=== PATIENT | female | born 1980 | race Caucasian/White ===

== ENCOUNTER 2022-07-16 09:04 | Emergency (ER) | payer MEDICAID ==
[2022-07-16] MEDS ORDERED: LORazepam 1 MG Tab PO ONE (10:46)
== END 2022-07-16 14:12 | disposition home or self-care (01) ==
LOC: JD.ED 09:04
DX: F41.9 Anxiety disorder, unspecified (principal); R05.9 Cough, unspecified; Z79.899 Other long term (current) drug therapy; Z87.891 Personal history of nicotine dependence
CPT/HCPCS: 36415; 71046; 80053; 80143; 80179; 80306; 80307; 81025; 84443; 85007; 85027; 93005; 99284; A9270

== ENCOUNTER 2024-06-20 12:39 | Emergency (ER) | payer SELFPAY ==
[2024-06-20] MEDS: Sodium Chloride 0.9% 10 ML Syringe FLUSH ONE (13:20)
[2024-06-20] MEDS: Ondansetron 4 MG/2 ML SDV IVPUSH ONE (13:20)
[2024-06-20] MEDS: HYDROmorphone 0.5 MG/0.5 ML Syringe IVPUSH ONE ×2 (13:22→14:50)
[2024-06-20] MEDS: Iopamidol 612 MG/ML 100 ML Bottle IVPUSH ONE (13:29)
[2024-06-20] MEDS: Sodium Chloride 0.9% 10 ML Syringe FLUSH PRN (13:29)
[2024-06-20 13:36] LABS: BASOPHILS ABSOLUTE AUTO 0.1 K/mm3 (0.0-0.2); BASOPHILS PERCENT AUTO 0.5 % (0.0-1.0); EOSINOPHILS PERCENT AUTO 0.1 % (0.0-6.0); HEMATOCRIT 42.1 % (37.0-47.0); HEMOGLOBIN 14.8 gm/dl (12.0-16.0); IMMATURE GRAN ABSOLUTE AUTO 0.05 K/mm3 (0.00-0.05); IMMATURE GRAN PERCENT AUTO 0.5 % (0.0-0.4); LYMPHOCYTES ABSOLUTE AUTO 0.6 K/mm3 (1.0-4.8); LYMPHOCYTES PERCENT AUTO 5.3 % (24.0-44.0); MEAN CORPUSCULAR HGB CONC 35.2 g/dl (32.0-36.0); MEAN CORPUSCULAR VOLUME 113.8 fl (83.0-99.0); MEAN PLATELET VOLUME 9.8 fl (9.4-12.3); MONOCYTES ABSOLUTE AUTO 0.7 K/mm3 (0.0-0.8); MONOCYTES PERCENT AUTO 6.6 % (0.0-8.0); NEUTROPHILS ABSOLUTE AUTO 9.6 K/mm3 (1.8-7.7); PLATELET COUNT,PLT 277 K/mm3 (150-400); WHITE BLOOD CELL COUNT,WBC 11.03 K/mm3 (3.9-11.3)
[2024-06-20] MEDS: Sodium Chloride 0.9% 1,000 ML IV STA (13:39)
[2024-06-20 13:56] LABS: A/G RATIO 1.1 (1-2); ALBUMIN 3.8 g/dl (3.4-5.0); BILIRUBIN TOTAL 0.9 mg/dL (0.2-1.0); CALCIUM 9.4 mg/dL (8.5-10.1); CREATININE 0.5 mg/dL (0.55-1.02); EST CRCL DRUG DOSING (CG) 135.05 mL/min; PROTEIN TOTAL,TP 7.4 g/dl (6.4-8.2)
[2024-06-20] MEDS: Lidocaine 2% 11 ML Jelly Filled Syringe MUCMEM ONE (14:52)
== END 2024-06-20 16:15 | disposition home or self-care (01) ==
LOC: JD.ED 12:39
DX: K59.09 Other constipation (principal); I10 Essential (primary) hypertension; Z88.5 Allergy status to narcotic agent
CPT/HCPCS: 36415; 74177; 80053; 83690; 85025; 96361; 96374; 96375; 96376; 99284; A9270; J1171; J2405; J7030; Q9967

== ENCOUNTER 2024-06-21 02:19 | Emergency (ER) | payer SELFPAY ==
[2024-06-21] MEDS ORDERED: Sodium Chloride 0.9% 10 ML Syringe FLUSH PRN (02:41)
[2024-06-21 03:16] LABS: BASOPHILS PERCENT AUTO 0.5 % (0.0-1.0); EOSINOPHILS ABSOLUTE AUTO 0.1 K/mm3 (0.0-0.4); EOSINOPHILS PERCENT AUTO 1.5 % (0.0-6.0); HEMATOCRIT 35.6 % (37.0-47.0); HEMOGLOBIN 12.6 gm/dl (12.0-16.0); IMMATURE GRAN ABSOLUTE AUTO 0.04 K/mm3 (0.00-0.05); IMMATURE GRAN PERCENT AUTO 0.5 % (0.0-0.4); LYMPHOCYTES ABSOLUTE AUTO 1.3 K/mm3 (1.0-4.8); LYMPHOCYTES PERCENT AUTO 15.1 % (24.0-44.0); MEAN CORPUSCULAR HEMOGLOBIN 40.1 pg (28.0-32.0); MEAN CORPUSCULAR HGB CONC 35.4 g/dl (32.0-36.0); MEAN CORPUSCULAR VOLUME 113.4 fl (83.0-99.0); MEAN PLATELET VOLUME 9.7 fl (9.4-12.3); MONOCYTES PERCENT AUTO 11.8 % (0.0-8.0); NEUTROPHILS ABSOLUTE AUTO 6.2 K/mm3 (1.8-7.7); NEUTROPHILS PERCENT AUTO 70.6 % (41.0-71.0); PLATELET COUNT,PLT 228 K/mm3 (150-400); RED BLOOD CELL COUNT 3.14 M/mm3 (4.10-5.30)
[2024-06-21 03:22] LABS: APPEARANCE,URINE CLOUDY (Clear); BILIRUBIN,URINE NEGATIVE (Negative); COLOR,URINE YELLOW (Yellow); GLUCOSE,URINE NEGATIVE (Negative); KETONES,URINE NEGATIVE (Negative); LEUKOCYTE ESTERASE,URINE 1+ (Negative); NITRITE,URINE NEGATIVE (Negative); OCCULT BLOOD,URINE TRACE-INTACT (Negative); PH,URINE 8.5 (5.0-8.0); PROTEIN,URINE TRACE (Negative); UROBILINOGEN,URINE 0.2 (0.2-1.0)
[2024-06-21 03:33] LABS: A/G RATIO 1.1 (1-2); ALBUMIN 3.2 g/dl (3.4-5.0); ANION GAP 11.5 (5-15); BILIRUBIN TOTAL 1.1 mg/dL (0.2-1.0); CREATININE 0.6 mg/dL (0.55-1.02); EST CRCL DRUG DOSING (CG) 121.96 mL/min; POTASSIUM,K 3.5 mEq/L (3.5-5.1)
[2024-06-21 03:35] LABS: RBC,URINE 0-5 /hpf (0-5)
[2024-06-21 03:36] LABS: AMORPHOUS SEDIMENT,URINE MANY /hpf (NOT SEEN); BACTERIA,URINE MANY /hpf (FEW); MUCUS,URINE NOT SEEN /hpf (FEW); TRICHOMONAS,URINE FEW (NOT SEEN)
[2024-06-21 03:52] LABS: SLIDE REVIEW ABNORMAL SMEAR
== END 2024-06-21 05:21 | disposition home or self-care (01) ==
LOC: JD.ED 02:19
DX: K62.89 Other specified diseases of anus and rectum (principal); A59.9 Trichomoniasis, unspecified; K59.09 Other constipation; I10 Essential (primary) hypertension; Z88.5 Allergy status to narcotic agent; Z79.899 Other long term (current) drug therapy
CPT/HCPCS: 36415; 74176; 74176-26; 80053; 81001; 84703; 85025; 87086; 99284

== ENCOUNTER 2024-11-09 08:26 | Emergency (ER) | payer SELFPAY ==
[2024-11-09] MEDS: Diphtheria,Pertussis(Acell),Tetanus Vaccine 0.5 ML Syringe IM ONE (09:21)
== END 2024-11-09 09:30 | disposition home or self-care (01) ==
LOC: JD.ED 08:26
DX: S61.451A Open bite of right hand, initial encounter (principal); Z23 Encounter for immunization; I10 Essential (primary) hypertension; Z88.8 Allergy status to other drugs, medicaments and biological substances; W54.0XXA Bitten by dog, initial encounter
CPT/HCPCS: 73120-26-RT; 73120-RT; 90471; 90715; 99283; 99283-25

== ENCOUNTER 2025-03-03 14:07 | Inpatient (IN) | payer MEDICAID ==
[2025-03-03] MEDS ORDERED: Sodium Chloride 0.9% 10 ML Syringe FLUSH PRN (15:39)
[2025-03-03 16:22] LABS: BASOPHILS ABSOLUTE AUTO 0.1 K/mm3 (0.0-0.2); BASOPHILS PERCENT AUTO 0.5 % (0.0-1.0); EOSINOPHILS ABSOLUTE AUTO 0.1 K/mm3 (0.0-0.4); EOSINOPHILS PERCENT AUTO 0.7 % (0.0-6.0); IMMATURE GRAN ABSOLUTE AUTO 0.11 K/mm3 (0.00-0.05); IMMATURE GRAN PERCENT AUTO 0.7 % (0.0-0.4); LYMPHOCYTES ABSOLUTE AUTO 2.3 K/mm3 (1.0-4.8); LYMPHOCYTES PERCENT AUTO 15.0 % (24.0-44.0); MEAN PLATELET VOLUME 9.3 fl (9.4-12.3); MONOCYTES ABSOLUTE AUTO 1.6 K/mm3 (0.0-0.8); MONOCYTES PERCENT AUTO 10.0 % (0.0-8.0); NEUTROPHILS ABSOLUTE AUTO 11.4 K/mm3 (1.8-7.7); NEUTROPHILS PERCENT AUTO 73.1 % (41.0-71.0); NRBC ABSOLUTE 0.00 (0.00-0.02); NRBC PERCENT 0.0 % (0.0-0.2); PLATELET COUNT,PLT 259 K/mm3 (150-400); RED BLOOD CELL COUNT 2.25 M/mm3 (4.10-5.30); WHITE BLOOD CELL COUNT,WBC 15.55 K/mm3 (3.9-11.3)
[2025-03-03 16:51] LABS: A/G RATIO 0.6 (1-2); ALANINE AMINOTRANSFERASE,ALT 41.0 U/L (14-59); ASPARTATE AMNIOTRANSFERASE,AST 98.0 U/L (15-37); BILIRUBIN TOTAL 3.4 mg/dL (0.2-1.0); BLOOD UREA NITROGEN,BUN 7.0 mg/dL (7-18); CARBON DIOXIDE,CO2 27.0 mEq/L (21-32); CHLORIDE,CL 93.0 mEq/L (98-107); CREATININE 0.7 mg/dL (0.55-1.02); EST CRCL DRUG DOSING (CG) 99.73 mL/min; ESTIMATED GFR 109.0 mL/min (>60); GLUCOSE RANDOM 99.0 mg/dL (70-99); POTASSIUM,K 3.3 mEq/L (3.5-5.1); PROTEIN TOTAL,TP 5.7 g/dl (6.4-8.2); SODIUM,NA 129.0 mEq/L (136-145)
[2025-03-03 18:09] LABS: INR 1.3
[2025-03-03 18:10] LABS: PTT,PARTIAL THROMBOPLSTIN TIME 29.6 SECONDS (21.7-31.4)
[2025-03-03] MEDS: Sodium Chloride 0.9% 10 ML Syringe FLUSH ONE (18:56)
[2025-03-03] MEDS: Iopamidol 612 MG/ML 100 ML Bottle IVPUSH ONE (18:56)
[2025-03-03 21:41] LABS: APPEARANCE,URINE SLT CLOUDY (Clear); GLUCOSE,URINE NEGATIVE (Negative); OCCULT BLOOD,URINE NEGATIVE (Negative)
[2025-03-04 05:39] LABS: BASOPHILS ABSOLUTE AUTO 0.1 K/mm3 (0.0-0.2); BASOPHILS PERCENT AUTO 0.8 % (0.0-1.0); EOSINOPHILS ABSOLUTE AUTO 0.2 K/mm3 (0.0-0.4); EOSINOPHILS PERCENT AUTO 1.2 % (0.0-6.0); IMMATURE GRAN ABSOLUTE AUTO 0.08 K/mm3 (0.00-0.05); IMMATURE GRAN PERCENT AUTO 0.6 % (0.0-0.4); LYMPHOCYTES ABSOLUTE AUTO 2.2 K/mm3 (1.0-4.8); LYMPHOCYTES PERCENT AUTO 17.4 % (24.0-44.0); MEAN PLATELET VOLUME 9.2 fl (9.4-12.3); MONOCYTES ABSOLUTE AUTO 1.4 K/mm3 (0.0-0.8); MONOCYTES PERCENT AUTO 11.5 % (0.0-8.0); NEUTROPHILS ABSOLUTE AUTO 8.6 K/mm3 (1.8-7.7); NEUTROPHILS PERCENT AUTO 68.5 % (41.0-71.0); NRBC ABSOLUTE 0.00 (0.00-0.02); NRBC PERCENT 0.0 % (0.0-0.2); PLATELET COUNT,PLT 228 K/mm3 (150-400); RED BLOOD CELL COUNT 2.02 M/mm3 (4.10-5.30); WHITE BLOOD CELL COUNT,WBC 12.50 K/mm3 (3.9-11.3)
[2025-03-04 06:25] LABS: A/G RATIO 0.6 (1-2); ALANINE AMINOTRANSFERASE,ALT 35.0 U/L (14-59); ASPARTATE AMNIOTRANSFERASE,AST 69.0 U/L (15-37); BILIRUBIN TOTAL 2.2 mg/dL (0.2-1.0); BLOOD UREA NITROGEN,BUN 7.0 mg/dL (7-18); CARBON DIOXIDE,CO2 28.0 mEq/L (21-32); CHLORIDE,CL 95.0 mEq/L (98-107); CREATININE 0.7 mg/dL (0.55-1.02); EST CRCL DRUG DOSING (CG) 99.73 mL/min; ESTIMATED GFR 109.0 mL/min (>60); GLUCOSE RANDOM 91.0 mg/dL (70-99); POTASSIUM,K 2.7 mEq/L (3.5-5.1); PROTEIN TOTAL,TP 5.1 g/dl (6.4-8.2); SODIUM,NA 131.0 mEq/L (136-145)
[2025-03-04] MEDS ORDERED: Ondansetron 4 MG/2 ML SDV IV PRN (09:16)
[2025-03-04] MEDS: Magnesium Sulf/Wat 4 GM/50 mL 4 GM in Premix Bag 1 BAG IV ONE (10:46)
[2025-03-04] MEDS: Furosemide 20 MG/2 ML VIAL IVPUSH ONE (10:48)
[2025-03-04] MEDS: Potassium Chloride 20 MEQ Tab.ER PO SCH (10:50)
[2025-03-04] MEDS: LORazepam 2 MG/ML SDV IVPUSH ONE (12:49)
[2025-03-04] MEDS: Gadobenate Dimeglumine 529 MG/ML 15 ML SDV IVPUSH ONE (13:50)
[2025-03-04] MEDS: Sodium Chloride 0.9% 10 ML Syringe FLUSH SCH (13:50)
[2025-03-05 05:51] LABS: BASOPHILS ABSOLUTE AUTO 0.1 K/mm3 (0.0-0.2); BASOPHILS PERCENT AUTO 0.9 % (0.0-1.0); EOSINOPHILS ABSOLUTE AUTO 0.2 K/mm3 (0.0-0.4); EOSINOPHILS PERCENT AUTO 1.4 % (0.0-6.0); IMMATURE GRAN ABSOLUTE AUTO 0.09 K/mm3 (0.00-0.05); IMMATURE GRAN PERCENT AUTO 0.7 % (0.0-0.4); LYMPHOCYTES ABSOLUTE AUTO 2.3 K/mm3 (1.0-4.8); LYMPHOCYTES PERCENT AUTO 16.7 % (24.0-44.0); MEAN PLATELET VOLUME 9.7 fl (9.4-12.3); MONOCYTES ABSOLUTE AUTO 1.2 K/mm3 (0.0-0.8); MONOCYTES PERCENT AUTO 8.8 % (0.0-8.0); NEUTROPHILS ABSOLUTE AUTO 9.7 K/mm3 (1.8-7.7); NEUTROPHILS PERCENT AUTO 71.5 % (41.0-71.0); NRBC ABSOLUTE 0.00 (0.00-0.02); NRBC PERCENT 0.0 % (0.0-0.2); PLATELET COUNT,PLT 259 K/mm3 (150-400); RED BLOOD CELL COUNT 2.20 M/mm3 (4.10-5.30); WHITE BLOOD CELL COUNT,WBC 13.49 K/mm3 (3.9-11.3)
[2025-03-05 06:18] LABS: A/G RATIO 0.7 (1-2); ALANINE AMINOTRANSFERASE,ALT 36.0 U/L (14-59); ASPARTATE AMNIOTRANSFERASE,AST 75.0 U/L (15-37); BILIRUBIN TOTAL 2.2 mg/dL (0.2-1.0); BLOOD UREA NITROGEN,BUN 6.0 mg/dL (7-18); CARBON DIOXIDE,CO2 29.0 mEq/L (21-32); CHLORIDE,CL 94.0 mEq/L (98-107); CREATININE 0.6 mg/dL (0.55-1.02); EST CRCL DRUG DOSING (CG) 116.35 mL/min; ESTIMATED GFR 113.0 mL/min (>60); GLUCOSE RANDOM 127.0 mg/dL (70-99); POTASSIUM,K 2.9 mEq/L (3.5-5.1); PROTEIN TOTAL,TP 5.6 g/dl (6.4-8.2); SODIUM,NA 130.0 mEq/L (136-145)
[2025-03-05] MEDS ORDERED: Furosemide 20 MG/2 ML VIAL IVPUSH SCH (09:00)
[2025-03-05] MEDS: Lactulose Soln 10 GM/15 ML 30 ML UD Cup PO SCH (09:50)
[2025-03-05] MEDS: Potassium Chloride 20 MEQ Tab.ER PO ONE ×2 (09:50→13:18)
== END 2025-03-05 15:41 | disposition home or self-care (01) | DRG 432 ==
LOC: JD.ED 14:07 → JD.MS 21:36
PROVIDERS: ADMIT Family Medicine; ATTEND Family Medicine
DX: K70.31 Alcoholic cirrhosis of liver with ascites (principal); K65.2 Spontaneous bacterial peritonitis; K76.6 Portal hypertension; I85.00 Esophageal varices without bleeding; H54.7 Unspecified visual loss; I10 Essential (primary) hypertension; F41.9 Anxiety disorder, unspecified; F32.A Depression, unspecified; F43.12 Post-traumatic stress disorder, chronic; D64.9 Anemia, unspecified; E86.0 Dehydration; F17.200 Nicotine dependence, unspecified, uncomplicated; E83.42 Hypomagnesemia; F10.11 Alcohol abuse, in remission; E88.09 Other disorders of plasma-protein metabolism, not elsewhere classified; M79.89 Other specified soft tissue disorders; R79.89 Other specified abnormal findings of blood chemistry; E53.8 Deficiency of other specified B group vitamins; Z79.899 Other long term (current) drug therapy; Z98.890 Other specified postprocedural states; Z88.8 Allergy status to other drugs, medicaments and biological substances
CPT/HCPCS: 36415; 74177; 74177-26; 74183; 74183-26; 80053; 81001; 82140; 83690; 83735; 85025; 85610; 85730; 86140; 87040; 87086; 93971-26-LT; 93971-LT; 97112-GP; 97116-GP; 97161-GP; 99285; A9270-GY; A9577; J0696; J1938; J2060; J3475; J7030; Q9967

== ENCOUNTER 2025-03-29 12:37 | Emergency (ER) | payer MEDICAID ==
[2025-03-29 14:56] LABS: APPEARANCE,URINE CLOUDY (Clear); GLUCOSE,URINE NEGATIVE (Negative); OCCULT BLOOD,URINE TRACE-INTACT (Negative)
[2025-03-29] MEDS ORDERED: Sodium Chloride 0.9% 10 ML Syringe FLUSH PRN (14:56)
[2025-03-29 15:14] LABS: EPITHELIAL CELLS,URINE 0-5 /hpf (0-5)
[2025-03-29 15:44] LABS: BASOPHILS ABSOLUTE AUTO 0.1 K/mm3 (0.0-0.2); BASOPHILS PERCENT AUTO 0.7 % (0.0-1.0); EOSINOPHILS ABSOLUTE AUTO 0.2 K/mm3 (0.0-0.4); EOSINOPHILS PERCENT AUTO 1.5 % (0.0-6.0); IMMATURE GRAN ABSOLUTE AUTO 0.03 K/mm3 (0.00-0.05); IMMATURE GRAN PERCENT AUTO 0.3 % (0.0-0.4); LYMPHOCYTES ABSOLUTE AUTO 2.0 K/mm3 (1.0-4.8); LYMPHOCYTES PERCENT AUTO 16.8 % (24.0-44.0); MEAN PLATELET VOLUME 8.8 fl (9.4-12.3); MONOCYTES ABSOLUTE AUTO 1.3 K/mm3 (0.0-0.8); MONOCYTES PERCENT AUTO 11.2 % (0.0-8.0); NEUTROPHILS ABSOLUTE AUTO 8.3 K/mm3 (1.8-7.7); NEUTROPHILS PERCENT AUTO 69.5 % (41.0-71.0); NRBC ABSOLUTE 0.00 (0.00-0.02); NRBC PERCENT 0.0 % (0.0-0.2); PLATELET COUNT,PLT 339 K/mm3 (150-400); RED BLOOD CELL COUNT 3.00 M/mm3 (4.10-5.30); WHITE BLOOD CELL COUNT,WBC 11.96 K/mm3 (3.9-11.3)
[2025-03-29] MEDS: Iopamidol 612 MG/ML 100 ML Bottle IVPUSH ONE (15:53)
[2025-03-29] MEDS: Sodium Chloride 0.9% 10 ML Syringe FLUSH PRN (15:53)
[2025-03-29 16:02] LABS: INR 1.31
[2025-03-29 16:03] LABS: PTT,PARTIAL THROMBOPLSTIN TIME 29.7 SECONDS (21.7-31.4)
[2025-03-29 16:07] LABS: A/G RATIO 0.7 (1-2); ALANINE AMINOTRANSFERASE,ALT 27 U/L (14-59); ASPARTATE AMNIOTRANSFERASE,AST 49 U/L (15-37); BILIRUBIN TOTAL 1.5 mg/dL (0.2-1.0); BLOOD UREA NITROGEN,BUN 7 mg/dL (7-18); CARBON DIOXIDE,CO2 29 mEq/L (21-32); CHLORIDE,CL 100 mEq/L (98-107); CREATININE 0.7 mg/dL (0.55-1.02); ESTIMATED GFR 109 mL/min (>60); GLUCOSE RANDOM 120 mg/dL (70-99); POTASSIUM,K 2.9 mEq/L (3.5-5.1); PROTEIN TOTAL,TP 6.4 g/dl (6.4-8.2); SODIUM,NA 138 mEq/L (136-145)
[2025-03-29] MEDS: Potassium Chloride 20 MEQ Tab.ER PO ONE (19:08)
== END 2025-03-30 01:13 | disposition home or self-care (01) ==
LOC: JD.ED 12:37
DX: K74.60 Unspecified cirrhosis of liver (principal); R18.8 Other ascites; N39.0 Urinary tract infection, site not specified; I10 Essential (primary) hypertension; Z88.5 Allergy status to narcotic agent; Z88.8 Allergy status to other drugs, medicaments and biological substances
CPT/HCPCS: 36415; 49083; 74177; 80053; 81001; 83690; 83735; 84703; 85025; 85610; 85730; 87086; 96365; 96366; 99284; A9270; J2003; J3480; J7030; P9047; Q9967